=== PATIENT | male | born 1985 | race Caucasian/White ===

== ENCOUNTER 2022-12-30 20:50 | Emergency (ER) | payer BC, OTHER ==
[~2022-12-30] VITALS: Ht 193 cm; Wt 80.3 kg
[2022-12-30 21:28] VITALS: O2SAT 99
[2022-12-30 22:38] VITALS: BP 143/90
== END 2022-12-30 22:39 | disposition home or self-care (01) ==
LOC: ER 20:50
DX: I10 Essential (primary) hypertension (principal); F43.9 Reaction to severe stress, unspecified; J45.909 Unspecified asthma, uncomplicated
CPT/HCPCS: A4663